=== PATIENT | male | born 1945 | race Caucasian/White ===

== ENCOUNTER 2016-12-23 10:44 | Emergency (ER) | payer OTHER, MEDICARE ==
[2016-12-23] MEDS ORDERED: NS 500 ML IV ONE (10:49)
--- NOTE | 2016-12-23 10:49 | EDPHY ---
H & P HPI/ROS: HPI CHIEF COMPLAINT: Shortness of breath, cough HISTORY OF PRESENT ILLNESS: Patient very pleasant 71-year-old male he does not take any daily medications he tells me he is otherwise healthy he reports he has been sick for the past week with upper respiratory tract infection. He endorses cough with productive sputum of yellow to greenish sputum. No fever. Decided come to the emergency room today as he developed palpitations last night around 10:30 p.m.. He states his heart was fast and irregular. This has since resolved. Patient reports that he still has ongoing shortness of breath shortness of breath started last night. Denies wheezing. He denies significant chest pain. But does state along his ribs that meet his sternum he has some discomfort. Worse when he presses there. No pleuritic pain. No abnormal leg swelling. 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 Family History: Noncontributory ROS REVIEW OF SYSTEMS: A comprehensive 10 point review of systems is otherwise negative aside from elements mentioned in the history of present illness. Exam Constitutional appears well nontoxic triage nursing summary reviewed, vital signs reviewed, awake/alert. Eyes normal conjunctivae and sclera, EOMI, PERRLA. HENT normal inspection, atraumatic, moist mucus membranes, no epistaxis, neck supple/ no meningismus, no raccoon eyes. Respiratory clear to auscultation bilaterally, normal breath sounds, no respiratory distress, no wheezing. Cardiovascular rate normal, regular rhythm, no murmur, no edema, distal pulses normal. Gastrointestinal soft, non-tender, no rebound, no guarding, normal bowel sounds, no distension, no pulsatile mass. Genitourinary no CVA tenderness. Musculoskeletal no midline vertebral tenderness, full range of motion, no calf swelling, no tenderness of extremities, no meningismus, good pulses, neurovascularly intact. Skin pink, warm, & dry, no rash, skin atraumatic. Neurologic awake, alert and oriented x 3, AAOx3, moves all 4 extremities equally, motor intact, sensory intact, CN II-XII intact, normal cerebellar, normal vision, normal speech. Psychiatric normal mood/affect. Heme/Lymph/Immune no lymphadenopathy. Differential diagnosis includes but is not limited to: ACS, atypical chest pain , pneumothorax, pneumonia, pulmonary embolism, aortic dissection, congestive heart failure, tumor, musculoskeletal pain, esophageal pain, GERD, peptic ulcer disease, pancreatitis Medical Decision Making: Plan for this patient IV establishment full patient monitor, obtain EKG to rule out acute coronary syndrome, troponin, electrolytes , blood work, chest x-ray. Re-evaluation: EKG interpretation by me on record in [employer] system. Impression time of EKG 10:56 a.m., this is sinus rhythm rate of 83. FL interval noted to be 200. Q -waves noted V1 V2. No old EKG to compare this to. I do not appreciate acute ischemia. EKG interpretation by me on record in [employer] system. Impression this is a repeat EKG time of EKG 13 30, this is sinus rhythm rate of 78 there is no acute ischemic change. Specifically I do not appreciate ST elevation or ST depression or significant T-wave abnormalities. Unchanged from previous EKG. 1405: Re-evaluation at this time this patient is requesting be discharged from the emergency room. He has had 2 nonischemic EKGs. 2 troponins that are negative. He does not have any chest pain or pressure. His main complaint was shortness of breath. His chest x-ray reveals no focal pneumonia. It is hyperexpanded and COPD appearing. Patient denies history of COPD. I will refer him to pulmonology. Placed on albuterol. He does understand return emergency room if any worsening symptoms questions or concerns. Additionally understands return emergency room if develops worsening shortness of breath chest pain or does not feel well. I do not feel that he is having ischemic event. He has been sleeping here. He understands return precautions. Source: Patient Constitutional: Initial Vital Signs Temperature (C) 36.3 C 12/23/16 10:49 Heart Rate 81 12/23/16 10:49 Respiratory Rate 17 12/23/16 10:49 Blood Pressure 138/76 H 12/23/16 10:49 O2 Sat (%) 95 12/23/16 10:49 O2 Delivery Mode Room Air Allergies/Adverse Reactions: bacitracin [From Neosporin ([id number])] Allergy (Verified 12/23/16 10:48) neomycin [From Neosporin ([id number])] Allergy (Verified 12/23/16 10:48) polymyxin B [From Neosporin ([id number])] Allergy (Verified 12/23/16 10:48) neom Allergy (Uncoded 12/23/16 10:49) Home Medications: Medication Instructions Recorded AZITHROMYCIN [Z-PACK] 250 mg PO DAILY #6 tab 12/23/16 Albuterol [Proventil Inhaler HFA 1 - 2 puffs IH Q4H #1 mdi 12/23/16 (*)] predniSONE 60 mg PO DAILY #15 tab 12/23/16 Medical Decision Making - Diagnostics Imaging Results: Imaging Impressions Chest X-Ray 12/23/16 11:00 Impression: Lung hyperexpansion suggestive of COPD, with no focal infiltrate. - Data Points Laboratory Results: Laboratory Results 12/23/16 11:00 12/23/16 11:00 12/23/16 12/23/16 12/23/16 13:25 11:00 11:00 WBC RBC Hgb Hct MCV MCH MCHC RDW Plt Count MPV Neut % (Auto) Lymph % (Auto) [place] % (Auto) Eos % (Auto) Baso % (Auto) Nucleat RBC Rel Count Absolute Neuts (auto) Absolute Lymphs (auto) Absolute Monos (auto) Absolute Eos (auto) Absolute Basos (auto) Absolute Nucleated RBC Immature Gran % Immature Gran # PT 12.7 SEC SEC (12.0-15.0) INR 0.96 (0.83-1.16) APTT 32.3 SEC SEC (23.0-38.0) D-Dimer 0.32 ug/mLFEU ug/mLFEU (0.00-0.50) Sodium 135 mEq/L mEq/L (134-144) Potassium 4.3 mEq/L mEq/L (3.5-5.2) Chloride 97 mEq/L mEq/L (97-110) Carbon Dioxide 26 mEq/l mEq/l (22-31) Anion Gap 12 mEq/L mEq/L (8-16) BUN 23 mg/dL mg/dL (7-23) Creatinine 1.1 mg/dL mg/dL (0.7-1.3) Estimated GFR > 60 Glucose 108 mg/dL H mg/dL (70-100) Calcium 10.3 mg/dL mg/dL (8.5-10.4) Magnesium 1.9 mg/dL mg/dL (1.6-2.3) Total Bilirubin 0.9 mg/dL mg/dL (0.1-1.4) Conjugated Bilirubin 0.1 mg/dL mg/dL (0.0-0.5) Unconjugated Bilirubin 0.8 mg/dL mg/dL (0.0-1.1) AST 24 IU/L IU/L (17-59) ALT 33 IU/L IU/L (21-72) Alkaline Phosphatase 56 IU/L IU/L (38-126) Creatine Kinase 39 IU/L IU/L (0-224) CK-MB (CK-2) Fraction 1.26 ng/mL ng/mL (0.00-3.19) Troponin I < 0.012 ng/mL ng/mL < 0.012 ng/mL ng/mL (0.000-0.034) (0.000-0.034) NT-Pro-B Natriuret Pep 420 pg/mL H pg/mL (0-125) Total Protein 6.7 g/dL g/dL (6.3-8.2) Albumin 4.0 g/dL g/dL (3.5-5.0) Lipase 78 IU/L IU/L (23-300) 12/23/16 11:00 WBC 5.99 10^3/uL 10^3/uL (3.80-9.50) RBC 5.70 10^6/uL 10^6/uL (4.40-6.38) Hgb 18.4 g/dL H g/dL (13.7-17.5) Hct 51.9 % H % (40.0-51.0) MCV 91.1 fL fL (81.5-99.8) MCH 32.3 pg pg (27.9-34.1) MCHC 35.5 g/dL g/dL (32.4-36.7) RDW 12.2 % % (11.5-15.2) Plt Count 196 10^3/uL 10^3/uL (150-400) MPV 9.6 fL fL (8.7-11.7) Neut % (Auto) 78.6 % H % (39.3-74.2) Lymph % (Auto) 14.2 % L % (15.0-45.0) [place] % (Auto) 6.2 % % (4.5-13.0) Eos % (Auto) 0.2 % L % (0.6-7.6) Baso % (Auto) 0.5 % % (0.3-1.7) Nucleat RBC Rel Count 0.0 % % (0.0-0.2) Absolute Neuts (auto) 4.71 10^3/uL 10^3/uL (1.70-6.50) Absolute Lymphs (auto) 0.85 10^3/uL L 10^3/uL (1.00-3.00) Absolute Monos (auto) 0.37 10^3/uL 10^3/uL (0.30-0.80) Absolute Eos (auto) 0.01 10^3/uL L 10^3/uL (0.03-0.40) Absolute Basos (auto) 0.03 10^3/uL 10^3/uL (0.02-0.10) Absolute Nucleated RBC 0.00 10^3/uL 10^3/uL (0-0.01) Immature Gran % 0.3 % % (0.0-1.1) Immature Gran # 0.02 10^3/uL 10^3/uL (0.00-0.10) PT INR APTT D-Dimer Sodium Potassium Chloride Carbon Dioxide Anion Gap BUN Creatinine Estimated GFR Glucose Calcium Magnesium Total Bilirubin Conjugated Bilirubin Unconjugated Bilirubin AST ALT Alkaline Phosphatase Creatine Kinase CK-MB (CK-2) Fraction Troponin I NT-Pro-B Natriuret Pep Total Protein Albumin Lipase Medications Given: Discontinued Medications Albuterol/Ipratropium (Duoneb) 3 ml IH EDNOW ONE Stop: 12/23/16 12:01 Last Admin: 12/23/16 12:10 Dose: 3 ml Sodium Chloride (Ns) 500 mls @ 1,000 mls/hr IV EDNOW ONE PRN Reason: Protocol Stop: 12/23/16 11:18 Last Admin: 12/23/16 11:03 Dose: 500 mls Departure - Departure Disposition: Home, Routine, Self-Care Clinical Impression: Dyspnea Qualifiers: Dyspnea type: unspecified Qualified Code(s): R06.00 - Dyspnea, unspecified Condition: Good Instructions: Dyspnea (ED) Referrals: NONE *PRIMARY CARE P,. [Primary Care Provider] - As per Instructions Andrea Mendoza MD [Medical Doctor] - As per Instructions Prescriptions: Albuterol [Proventil Inhaler HFA (*)] 1 - 2 puffs IH Q4H #1 mdi AZITHROMYCIN [Z-PACK] 250 mg PO DAILY #6 tab predniSONE 60 mg PO DAILY #15 tab
[2016-12-23 10:55] VITALS: TEMP 97.3
--- NOTE | 2016-12-23 10:59 | CPEKG ---
Heart Rate: 83 RR Interval: 723 P-R Interval: 200 QRSD Interval: 66 QT Interval: 344 QTC Interval: 405 P [place]: 81 QRS [place]: 63 T Wave [place]: 53 EKG Severity - ABNORMAL ECG - EKG Impression: SINUS RHYTHM EKG Impression: LOW VOLTAGE IN FRONTAL LEADS EKG Impression: CONSIDER ANTEROSEPTAL INFARCT Electronically Signed By: Ray Pozo 23-Dec-2016 15:24:55
[2016-12-23 11:12] LABS: % IMMATURE GRANULYOCYTES 0.3 % (0.0-1.1); ABSOLUTE IMMATURE GRANULOCYTES 0.02 10^3/uL (0.00-0.10); ADD DIFF? NO; ADD MORPH? NO; ADD SCAN? NO; ATYPICAL LYMPHOCYTE FLAG 0 (0-99); FRAGMENT RBC FLAG 0 (0-99); HEMATOCRIT 51.9 % (40.0-51.0); HEMOGLOBIN 18.4 g/dL (13.7-17.5); LEFT SHIFT FLG 0 (0-99); LIPEMIA HEMOLYSIS FLAG 90 (0-99); MEAN CELL HEMOGLOBIN 32.3 pg (27.9-34.1); MEAN CELL HEMOGLOBIN CONCENTR. 35.5 g/dL (32.4-36.7); MEAN CELL VOLUME 91.1 fL (81.5-99.8); MEAN PLATELET VOLUME 9.6 fL (8.7-11.7); PLATELET CLUMPS FLAG 0 (0-99); PLATELET COUNT 196 10^3/uL (150-400); RED CELL DISTRIBUTION WIDTH 12.2 % (11.5-15.2)
[2016-12-23 11:22] LABS: ALANINE AMINOTRANSFERASE 33 IU/L (21-72); ALKALINE PHOSPHATASE 56 IU/L (38-126); ANION GAP 12 mEq/L (8-16); ASPARTATE AMINOTRANSFERASE 24 IU/L (17-59); BILIRUBIN,TOTAL 0.9 mg/dL (0.1-1.4); BILIRUBIN-CONJUGATED 0.1 mg/dL (0.0-0.5); BILIRUBIN-UNCONJUGATED 0.8 mg/dL (0.0-1.1); CALCIUM 10.3 mg/dL (8.5-10.4); CARBON DIOXIDE 26 mEq/l (22-31); CHLORIDE 97 mEq/L (97-110); CREATININE 1.1 mg/dL (0.7-1.3); GLOMERULAR FILTRATION RATE > 60; GLUCOSE 108 mg/dL (70-100); MAGNESIUM 1.9 mg/dL (1.6-2.3); POTASSIUM 4.3 mEq/L (3.5-5.2); SODIUM 135 mEq/L (134-144); TOTAL PROTEIN 6.7 g/dL (6.3-8.2)
[2016-12-23 11:36] LABS: CREATINE KINASE-MB FRACTION 1.26 ng/mL (0.00-3.19); TROPONIN I < 0.012 ng/mL (0.000-0.034)
[2016-12-23 11:39] LABS: APTT 32.3 SEC (23.0-38.0); INR 0.96 (0.83-1.16); PROTIME(PATIENT) 12.7 SEC (12.0-15.0)
[2016-12-23] MEDS ORDERED: IPRATROPIUM/ALBUTEROL 3 ML DEYVIAL IH ONE (12:00)
[2016-12-23 12:46] VITALS: RESP 16
--- NOTE | 2016-12-23 13:31 | CPEKG ---
Heart Rate: 78 RR Interval: 769 P-R Interval: 188 QRSD Interval: 76 QT Interval: 376 QTC Interval: 429 P [place]: 74 QRS [place]: 42 T Wave [place]: 50 EKG Severity - OTHERWISE NORMAL ECG - EKG Impression: SINUS RHYTHM EKG Impression: LOW VOLTAGE IN FRONTAL LEADS Electronically Signed By: Ray Pozo 23-Dec-2016 15:24:55
[2016-12-23 14:19] VITALS: BP 114/72; PULSE 72; O2SAT 96
== END 2016-12-23 14:19 | disposition home or self-care (01) ==
DX: R06.00 Dyspnea, unspecified (principal); E86.9 Volume depletion, unspecified

== ENCOUNTER → 2017-03-05 | Outpatient (CLI) | payer OTHER, MEDICARE | LOC: BHFA 09:15 | PROVIDERS: ATTEND Internal Medicine Cardiovascular Disease | DX: R00.2 Palpitations (principal) ==